=== PATIENT | female | born 1970 | race Caucasian/White ===

== ENCOUNTER → 2023-08-05 11:02 | Outpatient (REF) | payer OTHER, SELFPAY | LOC: RAD 11:02 | PROVIDERS: ATTENDING PHYSICIAN Nurse Practitioner Family | DX: Z13.820 Encounter for screening for osteoporosis (principal) | CPT/HCPCS: 77080 ==

== ENCOUNTER → 2024-03-07 15:03 | Outpatient (REF) | payer OTHER, SELFPAY | LOC: WDC 15:03 | PROVIDERS: ATTENDING PHYSICIAN Family Medicine | DX: Z12.31 Encounter for screening mammogram for malignant neoplasm of breast (principal) | CPT/HCPCS: 77063; 77067 ==

== ENCOUNTER → 2024-07-17 16:32 | Outpatient (REF) | payer OTHER, SELFPAY | LOC: RAD 16:32 | PROVIDERS: ATTENDING PHYSICIAN Family Medicine | DX: R51.9 Headache, unspecified (principal) | CPT/HCPCS: 70450 ==

== ENCOUNTER → 2025-04-01 13:02 | Outpatient (REF) | payer OTHER, SELFPAY | LOC: WDC 13:02 | PROVIDERS: ATTENDING PHYSICIAN Obstetrics & Gynecology; FAMILY PHYSICIAN Family Medicine | DX: Z12.31 Encounter for screening mammogram for malignant neoplasm of breast (principal) | CPT/HCPCS: 77063; 77067 ==